=== PATIENT | male | born 2000 | race Caucasian/White ===

== ENCOUNTER 2021-06-01 15:17 | Emergency (ER) | payer OTHER, SELFPAY ==
[2021-06-01 15:20] VITALS: BP 131/80; PULSE 80; RESP 20; TEMP 36.7; O2SAT 98; BMI 35.4
[2021-06-01 15:48] LABS: Apearance,Urine Clear (Clear); Bilirubin,Urine Negative (Negative); Blood, Urine Negative (Negative); Color,Urine Yellow (Yellow); Glucose,Urine (UA) Negative (Negative); Ketones,Urine Negative (Negative); Protein,Urine Negative (Negative); Specific Gravity, Urine 1.025 (1.005-1.030); UTC Leukocyte Esterase,Urine Negative (Negative); UTC Nitrate,Urine Negative (Negative); Urobilinogen,Urine 0.2 EU/dl (0.2)
--- NOTE | 2021-06-01 15:58 | US_ITS ---
PROCEDURE: US TESTICULAR CLINICAL INDICATION: PAIN TO LEFT GROIN COMPARISON: No exams were available for comparison FINDINGS: No testicular mass apparent. There is bilateral testicular blood flow. No hydrocele or spermatocele apparent. There is a left-sided varicocele. IMPRESSION: Left-sided varicocele otherwise negative scrotal ultrasound Dictated by: Gregorio Smith MD 06/01/2021 21:23 Gregorio Smith MD in [place] 06/01/2021 21:23
--- NOTE | 2021-06-01 16:02 | HMH.EDUTC ---
[facility] [place] Disposition Clinical Impression: Testicular pain, left, Epididymitis Disposition: Home, Self-Care Condition on Discharge: Good Instructions: Epididymitis, DI for Epididymitis Additional Instructions: Drink plenty of fluids. Take tylenol or ibuprofen for pain or fever. Take the medications as directed. Follow up with your regular doctor. GO TO THE ER FOR ANY WORSENING SYMPTOMS I put in a referral to urology (Dr. Poe). You should follow up with him. Call his office and make an appointment. Prescriptions: Ibuprofen [Ibuprofen 600mg Tablet] 600 mg PO Q6HP PRN #30 tab PRN Reason: Mild Pain Transmission Status: Received by [facility]/pharmacy #[id number] Doxycycline Hyclate [Doxycycline 100mg Capsule] 100 mg PO Q12 10 Days #20 cap Transmission Status: Received by [facility]/pharmacy #[id number] Referrals: Conner Correia MD [Primary Care Provider] - Jaime Poe MD [Staff Physician] - Forms: Work/School Release Time of Disposition: 17:10 Medical Decision Making - Medical Records Medical records reviewed: No: I reviewed the patient's medical records. - Yo Inquiry Pt receiving controlled substance: No Vital Signs: 06/01/21 15:20 06/01/21 16:10 Temperature 98.1 F 98.1 F Temperature Source Oral Pulse Rate 80 Pulse Rate [Right Brachial] 80 Respiratory Rate 20 20 Blood Pressure 131/80 Blood Pressure [Right Arm] 131/80 Blood Pressure Mean [Right Arm] 97 Blood Pressure Source [Right Arm] Automatic Cuff Blood Pressure Position [Right Arm] Sitting 02 Sat by Pulse Oximetry 98 Oxygen Delivery Method Room Air - Lab Data Lab results reviewed: Yes: I reviewed the patient's lab results. Lab Results 06/01/21 15:37: Urine Color Yellow, Urine Appearance Clear, Urine pH 5.0, Ur Specific [place] 1.025, Urine Protein Negative, Urine Glucose (UA) Negative, Urine Ketones Negative, Urine Blood Negative, Urine Nitrate Negative, Urine Bilirubin Negative, Urine Urobilinogen 0.2, Ur Leukocyte Esterase Negative Orders (Tests/Meds): ED MEDICATIONS Discontinued Medications Generic Name Dose Route Start Last Admin Trade Name Freq PRN Reason Stop Dose Admin Ceftriaxone Sodium 1 gm 06/01/21 17:08 Ceftriaxone 1gm Vial IM 06/01/21 17:09 ONCE ONE Protocol Lidocaine HCl 0 ml 07/12/21 17:08 Lidocaine 1% 5ml Pf Vial IM 06/01/21 17:09 ONCE ONE ORDERS Category Date Time Status Urine Culture Stat Micro 06/01/21 15:40 Ordered scrotum US [US Testicular] Stat Ultrasound 06/01/21 15:58 Taken Medical Decision Narrative: He refused the rocephin shot. [facility] HPI - General Stated complaint: Pain in groin Time Seen by Provider: 06/01/21 16:02 Mode of Arrival: Ambulatory Source of Information: Patient Limitations: No Limitations Description of Symptoms (Recalled from Triage Doc. by RN): PATIENT C/O PAIN TO LEFT GROIN. HE STATES PAIN STARTED TUESDAY NIGHT AFTER HE LIFTED SOMETHING AT WORK. DENIES ANY PROBLEMS WITH URINATION HEENT Symptoms (Recalled from RN notes): No Resp Symptoms (Recalled from RN notes): No Skin Symptoms (Recalled from RN notes): No MS Symptoms (Recalled from RN notes): No Functional Status (Recalled from RN notes): WNL - History of Present Illness Provider Complaint: He is here with cheif complaint of left sided scrotal pain. He states that his pain began on evening (4 days ago) after he was lifting heavy boxes at his job. He denies any history of similar issues. He denies any dysuria or other urinary symptoms. He denies any testicular swelling. He rate his pain as a 6/10 at its worst. Right now it is a 3/10 while he is sitting and not doing anything. - Related Data Previous Rx's Medication Instructions Recorded Doxycycline Hyclate [Doxycycline 100 mg PO Q12 10 Days #20 cap 06/01/21 100mg Capsule] Ibuprofen [Ibuprofen 600mg 600 mg PO Q6HP PRN #30 tab 06/01/21 Tablet] Allergies Allergy/AdvReac Type
[2021-06-01 16:10] VITALS: BP 131/80; PULSE 80; RESP 20; TEMP 36.7; O2SAT 98
[2021-06-03 23:44] LABS: Neisseria gonorrhoeae, NAA Negative (Negative)
== END 2021-06-01 17:18 | disposition home or self-care (01) ==
PROVIDERS: Emergency Provider Nurse Practitioner Family; PCP Family Medicine
DX: N45.1 Epididymitis (principal)
CPT/HCPCS: 76870; 81003; 87086; 87491; 87591; 99202; G0463

== ENCOUNTER → 2021-11-23 12:53 | Outpatient (CLI) | payer OTHER, SELFPAY | PROVIDERS: PCP Family Medicine; Visit Provider Nurse Practitioner | DX: U07.1 COVID-19 (principal) | CPT/HCPCS: C9803; U0003; U0005 ==